=== PATIENT | female | born 1985 | race Caucasian/White ===

== ENCOUNTER 2020-08-26 16:04 | Outpatient (CLI) | payer BC, SELFPAY ==
[2020-08-26 16:42] VITALS: BP 127/87; PULSE 68
[2020-08-26 16:45] VITALS: BP 126/87; PULSE 75
[2020-08-26 16:50] VITALS: BP 126/87; PULSE 80
[2020-08-26 16:56] LABS: Basophils Percent Auto 0.3 % (0.2-1.2); Eosinophils Percent Auto 0.5 % (0-4.4); Hematocrit 39.5 % (37.0-47.0); Hemoglobin 13.1 g/dL (12.0-15.0); Immature Granulocyte Absolute 0.07 K/mm3 (0.00-0.031); Immature Granulocyte Percent A 0.9 % (0-0.5); Lymphocytes Absolute Auto 2.29 K/mm3 (0.9-3.2); Lymphocytes Percent Auto 29.1 % (18.3-44.2); Mean Corpuscular HGB Conc 33.2 g/dl (32-36); Mean Corpuscular Volume 96.3 fl (80-100); Mean Platelet Volume 11.9 fl (7.4-10.4); Monocytes Absolute Auto 0.8 K/mm3 (0.1-0.6); Monocytes Percent Auto 9.6 % (2.6-8.5); Neutrophils Absolute Auto 4.7 K/mm3 (1.3-6.7); Neutrophils Percent Auto 59.6 % (45.5-73.1); Platelet Count Result 141 k/mm3 (150-375); Red Cell Distribution Width 13.5 % (11.5-14.5); White Blood Count 7.9 K/mm3 (4.5-10.0)
[2020-08-26 17:06] LABS: Alanine Aminotransferase 14 U/L (4-35); Albumin Level 3.5 g/dL (3.5-5.1); Alkaline Phosphatase 140 U/L (38-126); Anion Gap 6 mmol/L (8-16); Aspartate Amino Transferase 25 U/L (14-36); Bilirubin,Total 0.3 mg/dL (0.2-1.3); Blood Urea Nitrogen 12 mg/dL (7-17); Calcium 9.5 mg/dL (8.4-10.2); Carbon Dioxide 18 mmol/L (22-30); Chloride 110 mmol/L (98-107); Estimated Glomerular Filt Rate > 60; Glucose 73 mg/dL (65-110); Sodium 134 mmol/L (137-145); Uric Acid 4.3 mg/dL (2.5-7.5)
[2020-08-26 17:36] VITALS: BP 127/87
--- NOTE | 2020-08-26 17:39 | PC.NURSE ---
talked with patient as nurse was sending labs down, he discharged pt prior to any questions being asked by nurse. talked with pt on when to see him in the office and what to come back in for
== END 2020-08-26 17:15 | disposition home or self-care (01) ==
LOC: ANHOBOP 16:09 → ANHLDR 16:10
PROVIDERS: PCP Family Medicine; Visit Provider Student in an Organized Health Care Education/Training Program
DX: O13.9 Gestational [pregnancy-induced] hypertension without significant proteinuria, unspecified trimester (principal); Z3A.00 Weeks of gestation of pregnancy not specified
CPT/HCPCS: 36415; 59025; 80053; 84550; 85025; 99199

== ENCOUNTER 2020-09-09 17:07 | Outpatient (RCR) | payer BC, SELFPAY ==
[2020-09-09 18:25] VITALS: BP 140/89; PULSE 88
== END 2020-09-16 08:17 | disposition home or self-care (01) ==
LOC: ANHOBOP 17:07
PROVIDERS: PCP Family Medicine; Visit Provider Obstetrics & Gynecology
DX: O48.0 Post-term pregnancy (principal); Z3A.40 40 weeks gestation of pregnancy
CPT/HCPCS: 59025

== ENCOUNTER 2020-09-10 23:51 | Inpatient (IN) | payer BC, SELFPAY ==
[2020-08-10 14:33] VITALS: BMI 31.3
--- NOTE | 2020-09-10 23:51 | LDADM ---
This patient, Hailey Vu, was admitted to Labor/Delivery/Recovery 107 on 09/10/20 at 23:51. Plans for labor, pain management and were discussed with patient. Patient/family oriented to hospital policies and general routines including ID bracelet, bed and alarms, visiting hours, pain management, procedures, bathroom and other care routines, personal items, smoking policy, room service/diet and guest tray routines, security routines, and visiting hours. Patient/Family are encouraged to report perceived risks to care and to ask questions if they do not understand what they are told or what they should do. See OBIX for further documentation.
[2020-09-11] VITALS (120 sets, daily range): BP systolic 80–156; BP diastolic 41–103; PULSE 52–109; RESP 16–20; TEMP 36.3–36.9; O2SAT 97–100; BMI 31.8
[2020-09-11 01:10] LABS: Basophils Percent Auto 0.4 % (0.2-1.2); Eosinophils Percent Auto 0.4 % (0-4.4); Hematocrit 39.4 % (37.0-47.0); Hemoglobin 13.4 g/dL (12.0-15.0); Immature Granulocyte Absolute 0.08 K/mm3 (0.00-0.031); Lymphocytes Absolute Auto 2.96 K/mm3 (0.9-3.2); Lymphocytes Percent Auto 37.4 % (18.3-44.2); Mean Corpuscular Hemoglobin 32.8 pg (26-34); Mean Corpuscular Volume 96.6 fl (80-100); Mean Platelet Volume 12.9 fl (7.4-10.4); Monocytes Absolute Auto 0.7 K/mm3 (0.1-0.6); Monocytes Percent Auto 8.2 % (2.6-8.5); Neutrophils Absolute Auto 4.2 K/mm3 (1.3-6.7); Neutrophils Percent Auto 52.6 % (45.5-73.1); Platelet Count Result 109 k/mm3 (150-375); Red Blood Count 4.08 M/mm3 (4.2-5.4); Red Cell Distribution Width 13.5 % (11.5-14.5); White Blood Count 7.9 K/mm3 (4.5-10.0)
[2020-09-11 01:22] LABS: Alanine Aminotransferase 13 U/L (4-35); Albumin Level 3.5 g/dL (3.5-5.1); Alkaline Phosphatase 155 U/L (38-126); Anion Gap 7 mmol/L (8-16); Aspartate Amino Transferase 24 U/L (14-36); Bilirubin,Total 0.2 mg/dL (0.2-1.3); Blood Urea Nitrogen 14 mg/dL (7-17); Calcium 9.9 mg/dL (8.4-10.2); Carbon Dioxide 18 mmol/L (22-30); Chloride 105 mmol/L (98-107); Estimated CRCL calculation 109 ml/min; Estimated Glomerular Filt Rate > 60; Glucose 74 mg/dL (65-110); Potassium 3.7 mmol/L (3.4-5.0); Sodium 130 mmol/L (137-145); Uric Acid 5.3 mg/dL (2.5-7.5)
[2020-09-11] MEDS: OXYTOCIN 30 UNITS/NS 500 ML 30 UNITS/500 ML BAG 6 UNITS IV CONT (03:07)
[2020-09-11] MEDS: LACTATED RINGERS 1,000 ML 125 ML IV CONT ×3 (03:07→15:41)
[2020-09-11 03:26] LABS: Add Urine Microscopic? YES; Appearance Urine Cloudy (Clear); Bacteria Urine Trace /hpf; Bilirubin Urine Negative (Negative); Blood Urine 2+ (Negative); Color Urine Straw (Yellow); Glucose Urine UA Negative (Negative); Ketones Urine Trace mg/dL (Negative); Leukocyte Esterase Ur Trace LEU/UL (NEGATIVE); Nitrate Urine Negative (Negative); Protein Urine Negative (Negative); RBC Urine 0-2 /hpf (0-2); Specific Grav Ur 1.005 (1.001-1.035); Squamous Epithelial Cell Urine Few /hpf (Few); Urobilinogen Urine Negative mg/dL (<2.0); WBC Urine 0-3 /hpf (0-3)
[2020-09-11 03:27] LABS: Total Protein Urine Random 18 mg/dL; Ur Ttl Prot Creatinine Ratio 0.78 mg/mg (0-0.20)
--- NOTE | 2020-09-11 06:47 | PM.IMHP ---
H&P: HPI History of Present Illness Date/Time: 09/11/20 06:47 35-year-old 1 para 0 whose last menstrual period was 11/28/2019, EDC is 09/03/2020, confirmed by 1st trimester ultrasound presents at term in active labor. Her has been uncomplicated. She is 41 weeks gestation and was scheduled for induction in 2 days she spontaneously ruptured prior to admission Chief Complaint: spontaneous rupture membranes at 41 weeks gestation Review of Systems Review of Systems: All systems reviewed & are unremarkable except as noted in HPI and below PMFSH Family History Family History Father Diabetes mellitus Hypertension Mother Hypertension Diabetes mellitus Social History Social History Smoking status: Never smoker Substance use: never Gender identity (if verbalized by the patient): Female Sexual Orientation (if Verbalized by the Patient): Straight or Heterosexual Spiritual care concerns: No Meds Home Medications and Allergies Home Medications Medication Instructions Recorded Confirmed Type lysine 1,000 mg PO QAM 08/10/20 09/11/20 History omega-3 fatty acids [Fish Oil] 1,000 mg PO DAILY 08/10/20 08/10/20 History vit no.[id number] 1 tablet PO QAM 08/10/20 09/11/20 History [Alive ] Allergies Allergy/AdvReac Type Severity Reaction Status Date / Time amoxicillin Allergy Hives Verified 08/10/20 14:14 Vital Signs Vital Signs - 24 hr 09/11/20 00:21 09/11/20 00:31 09/11/20 00:45 Temperature 98.4 F Pulse Rate 57 L 72 Respiratory Rate 16 Blood Pressure 134/87 147/96 H 09/11/20 01:01 09/11/20 01:16 09/11/20 01:21 Temperature Pulse Rate 65 69 Respiratory Rate 16 Blood Pressure 136/88 130/83 09/11/20 01:34 09/11/20 02:01 09/11/20 02:04 Temperature 98.1 F Pulse Rate 100 59 L Respiratory Rate 16 Blood Pressure 97/83 L 135/77 09/11/20 03:01 09/11/20 03:31 09/11/20 04:01 Temperature Pulse Rate 78 62 57 L Respiratory Rate Blood Pressure 130/94 H 139/82 126/80 09/11/20 04:04 09/11/20 04:32 09/11/20 05:01 Temperature 97.9 F Pulse Rate 61 64 Respiratory Rate 18 Blood Pressure 133/91 H 132/92 H 09/11/20 05:30 09/11/20 06:00 09/11/20 06:03 Temperature 98.2 F Pulse Rate 80 72 Respiratory Rate 18 Blood Pressure 126/89 131/78 09/11/20 06:25 09/11/20 06:30 Temperature 97.8 F Pulse Rate 72 Respiratory Rate 18 Blood Pressure 144/81 H Exam Const: General: no acute distress Eyes: General: appearance normal, both eyes and all related structures Neck: Neck: supple and no JVD Thyroid: thyroid normal Resp: Effort & Inspection: normal respiratory effort Auscultation: clear to auscultation bilaterally Cardio: Rate: regular rate Rhythm: regular rhythm GI: Inspection: non-distended GI Palp: Yes Soft to palpation, No Tenderness to palpation present (GI) and No Guarding due to palpation present (GI) Auscultation: normal bowel sounds : Speculum Exam - Vagina: normal appearance of the vagina Speculum Exam - Cervix: normal appearance of the cervix ( dimple/50%. Clear fluid seen. FHTs reassuring. Pit has been begun) Skin: General skin exam: no rashes or lesions noted Extrem: General: normal to inspection and no edema Psych: Mental Status: mental status grossly normal Affect: normal affect H&P: Results Labs Labs: Short CBC 09/11/20 Range/Units 00:58 WBC 7.9 (4.5-10.0) K/mm3 Hgb 13.4 (12.0-15.0) g/dL Hct 39.4 (37.0-47.0) % Plt Count 109 L (150-375) k/mm3 BMP 09/11/20 00:58 Sodium 130 L Potassium 3.7 Chloride 105 Carbon Dioxide 18 L BUN 14 Creatinine 0.70 Glucose 74 Calcium 9.9 Liver Function 09/11/20 Range/Units 00:58 Total Bilirubin 0.2 (0.2-1.3) mg/dL AST 24 (14-36) U/L ALT 13 (4-35) U/L Alkaline Phosphata
[2020-09-11 10:28] LABS: Rapid Plasma Reagin Non-Reactive (NonReactive)
--- NOTE | 2020-09-11 10:34 | WPDANESEPP ---
Anes - Eval Pre Procedure Procedure: Labor epidural Date/Time: 09/11/20 10:34 Surgeon: Edenilson Preop Diagnosis: Abd pain with contractions Pre Op Diagnosis: SROM Patient Data Age: 35 Gender: F Height: 1.68 m Weight: 89.5 kg Last Vital Signs Temp 98 F 09/11/20 09:05 Pulse 78 09/11/20 10:00 Resp 18 09/11/20 09:05 BP 131/80 09/11/20 10:00 Allergies Allergy/AdvReac Type Severity Reaction Status Date / Time amoxicillin Allergy Hives Verified 08/10/20 14:14 Home Medications Medication Instructions Recorded Confirmed Type lysine 1,000 mg PO QAM 08/10/20 09/11/20 History omega-3 fatty acids [Fish Oil] 1,000 mg PO DAILY 08/10/20 08/10/20 History vit no.[id number] 1 tablet PO QAM 08/10/20 09/11/20 History [Alive ] Laboratory Tests 09/11/20 09/11/20 09/11/20 00:58 00:58 00:58 WBC 7.9 K/mm3 K/mm3 (4.5-10.0) RBC 4.08 M/mm3 L M/mm3 (4.2-5.4) Hgb 13.4 g/dL g/dL (12.0-15.0) Hct 39.4 % % (37.0-47.0) MCV 96.6 fl fl (80-100) MCH 32.8 pg pg (26-34) MCHC 34.0 g/dl g/dl (32-36) RDW 13.5 % % (11.5-14.5) Plt Count 109 k/mm3 L k/mm3 (150-375) MPV 12.9 fl H fl (7.4-10.4) Immature Gran % (Auto) 1.0 % H % (0-0.5) Neut % (Auto) 52.6 % % (45.5-73.1) Lymph % (Auto) 37.4 % % (18.3-44.2) [place] % (Auto) 8.2 % % (2.6-8.5) Eos % (Auto) 0.4 % % (0-4.4) Baso % (Auto) 0.4 % % (0.2-1.2) Lymph # (Auto) 2.96 K/mm3 K/mm3 (0.9-3.2) [place] # (Auto) 0.7 K/mm3 H K/mm3 (0.1-0.6) Eos # (Auto) 0.0 K/mm3 K/mm3 (0-0.3) Baso # (Auto) 0.0 K/mm3 K/mm3 (0.0-0.1) Abs Immat Gran (auto) 0.08 K/mm3 H K/mm3 (0.00-0.031) Absolute Neuts (auto) 4.2 K/mm3 K/mm3 (1.3-6.7) Absolute Nucleated RBC 0.0 K/mm3 K/mm3 (0.0-0.012) Nucleated RBC % 0.0 % % (0.0-0.2) Sodium Potassium Chloride Carbon Dioxide Anion Gap BUN Creatinine Estim Creat Clear Calc Estimated GFR Glucose Uric Acid 5.3 mg/dL mg/dL (2.5-7.5) Calcium Total Bilirubin AST ALT Alkaline Phosphatase Total Protein Albumin Urine Color Urine Appearance Urine pH Ur Specific [place] Urine Protein Urine Glucose (UA) Urine Ketones Ur Blood (Man) Urine Nitrate Urine Bilirubin Urine Urobilinogen Ur Leukocyte Esterase Urine RBC Urine WBC Ur Squamous Epith Cells Urine Bacteria U Random Total Protein Urine Creatinine Protein/Creat Ratio 2 RPR Non-reactive (NonReactive) Blood Type Antibody Screen 09/11/20 09/11/20 09/11/20 00:58 00:58 03:10 WBC RBC Hgb Hct MCV MCH MCHC RDW Plt Count MPV Immature Gran % (Auto) Neut % (Auto) Lymph % (Auto) [place] % (Auto) Eos % (Auto) Baso % (Auto) Lymph # (Auto) [place] # (Auto) Eos # (Auto) Baso # (Auto) Abs Immat Gran (auto) Absolute Neuts (auto) Absolute Nucleated RBC Nucleated RBC % Sodium 130 mmol/L L mmol/L (137-145) Potassium 3.7 mmol/L mmol/L (3.4-5.0) Chloride 105 mmol/L mmol/L (98-107) Carbon Dioxide 18 mmol/L L mmol/L (22-30) Anion Ga
--- NOTE | 2020-09-11 12:12 | PM.OBPNLAB ---
Pain Control Date/time seen: 09/11/20 12:12 Pain control: tolerating well Pelvic Exam Amniotic membrane status: Leaking Contractions Monitor mode: Palpation Contraction pattern: Regular Contraction phase: Resting Contraction intensity: Moderate Status status: Category l
[2020-09-11] MEDS: fentaNYL CITRATE INJ (*CRX) 100 MCG/2 ML VIAL 50 MCG IV PUSH (12:19)
--- NOTE | 2020-09-11 13:29 | PM.OBPNLAB ---
Pain Control Date/time seen: 09/11/20 13:29 Pain control: tolerating well Pelvic Exam Dilation (cm): 2 Amniotic membrane status: Leaking Contractions Monitor mode: Palpation Contraction pattern: Regular Contraction phase: Resting Contraction intensity: Moderate Status status: Category ll
--- NOTE | 2020-09-11 16:48 | PM.OBPNLAB ---
Pain Control Date/time seen: 09/11/20 16:48 Pain OK with epidural. AVSS NST reactive TOCO: contractions every 2-4 min ABD soft, nontender, gravid, vertex EXT nontender Cervix 4/50/-2. AROM of forebag with clear fluid. Vertex. IUPC placed. Pelvic Exam Dilation (cm): 4 Effacement (%): 60 station: -2 Amniotic membrane status: Leaking Contractions Monitor mode: Palpation Contraction frequency: 3 Contraction pattern: Regular Contraction phase: Resting Contraction intensity: Moderate Status status: Category l Assessment and Plan Comments: A: IUP at term with SROM. P: Continue oxytocin augmentation. Anticipate .
[2020-09-11] MEDS: ceFAZolin 2 GM/D5W 50 ML 2 GM/50 ML BAG IVPB (17:18)
[2020-09-12] VITALS (161 sets, daily range): BP systolic 66–158; BP diastolic 31–117; PULSE 56–266; RESP 13–20; TEMP 36.4–37.5; O2SAT 87–100
[2020-09-12] MEDS: LACTATED RINGERS 1,000 ML 125 ML IV CONT (00:35)
--- NOTE | 2020-09-12 09:57 | WPDANESEFPP ---
Anes - Eval Final PreProcedure Day of Procedure 09/12/20 09:57 Patient weight: obese Heart: regular rate and rhythm Lungs: clear to auscultation and normal air movement Airway: Mallampati scale class II Neurological: alert and oriented Last oral intake: >/= 8 hours ASA classification: II Emergent: no Anesthetic plan: proceed Anesthesia type and monitoring: regional epidural and standard monitoring Other findings: C/S Informed Consent: The patient's anesthetic plan and its attendant risks and benefits were discussed with the patient/family/POA. Questions were solicited and answers provided to the satisfaction of the patient/family/POA.
--- NOTE | 2020-09-12 09:59 | PM.OBPNLAB ---
Pain Control Date/time seen: 09/12/20 09:59 Still comfortable with epidural. Pelvic Exam Dilation (cm): 5 Effacement (%): 80 station: -1 Amniotic membrane status: Leaking Contractions Monitor mode: Palpation Contraction frequency: 3 Contraction pattern: Regular Contraction phase: Resting Contraction intensity: Moderate Status status: Category l Assessment and Plan Comments: A: Arrest of dilation in labor, despite adequate contractions. P: Offered primary . She understands risks of surgery to include risks of anesthesia, risks of pain, infection, bleeding, blood products, thromboembolic phenomena and damage to adjacent structures such as bowel, bladder, ureters, blood vessels and nerves. She understands all these risks and elects to proceed with surgery.
--- NOTE | 2020-09-12 11:22 | PM.OBPRVD ---
OB - Delivery Note Procedure Delivery date: 09/12/20 Procedure: Procedures Operation Date: 09/12/20 10:30 <No data on this case meets the specified criteria> Primary low transverse delivery Induction method: none Delivery augmentation: pitocin Delivery monitor: external FHT, external uterine and internal uterine Route of delivery: Specimen: Yes (cord blood) Quantitative Blood Loss (ml): 590 Anesthesia type: Epidural Disposition: PACU Complications: None Narrative: The patient was taken to the operating room where she was prepared and draped in the usual sterile fashion in dorsal supine position with a leftward tilt. She received cefazolin preoperatively. Spinal anesthesia was found to be adequate. A Pfannenstiel skin incision was made and carried through to the underlying layer of the fascia. The fascia was incised in the midline and the incision was extended laterally. The fascia was dissected free of the underlying rectus muscles. The rectus muscles were in the midline. The peritoneum was identified, tented up and entered sharply. The peritoneal incision was extended superiorly and inferiorly with good visualization of the bladder. The bladder blade was placed. The vesicouterine peritoneum was identified, tented up and entered sharply. The incision was extended laterally and the bladder flap was developed. The bladder blade was replaced. The uterus was then incised sharply in a transverse fashion along the lower uterine segment. The incision was extended laterally. The infant's head was delivered atraumatically to the sterile field, followed by the body. The nose and mouth were bulb suctioned. After a delay, the cord was clamped and cut. The was handed off the field. Cord blood was collected. The placenta was removed manually and was passed off the field. The uterus was exteriorized and cleared of all clots and debris. The uterine incision was reapproximated using 0 Monocryl in a running, locked fashion. A second, imbricating layer of the same suture was placed. Excellent hemostasis resulted as did excellent reapproximation of the normal anatomy. The uterus was returned the abdomen. The pelvis was irrigated copiously with warmed normal saline. Rigorous hemostasis was assured. The fascial layer was reapproximated using 0 Vicryl in a running fashion. The skin was closed with a running, subcuticular stitch of 4 0 Vicryl. Dermaflex was applied externally. Sponge, lap, needle and instrument counts were correct. The patient was taken to the recovery room in stable condition. The infant went to the nursery in stable condition. I was present and scrubbed the entire procedure. [place] Baby Date of : 09/12/20 Time of : 10:53 Weeks of gestation at delivery: 41 Infant gender: Male Weight (pounds): 10 Weight (ounces): 4 presentation: vertex Placenta delivery description: Manual Removal and Normal Configuration cord vessel description: 3 Vessels score one minute: 9 score five minutes: 9
--- NOTE | 2020-09-12 11:25 | PM.OBDSVD ---
DS: Admitting Diagnosis Admitting Diagnosis IUP at 41 2/7 weeks SROM DS: Discharge Diagnosis Discharge Diagnosis (1) delivery delivered: Code(s): O82 - Encounter for delivery without indication Status: Acute OB - DS: Summary OB Procedures : None OB Procedures Intrapartum: low cervical, transverse OB Procedures: : None Peripartum Data Procedures: Procedures Operation Date: 09/12/20 10:30 <No data on this case meets the specified criteria> Primary LTCS Discharge Plan Discharge Attending physician on discharge: Karri Arthur Consulting providers: Andrés Soto Discharging Clinician: Karri Arthur Patient Disposition: Home, Self-Care Activity: may shower, may drive after 2 weeks and pelvic rest Diet: regular Wound Care Instructions: incision open to air Discharge Instructions: Call or return if temperature above 100.4? F, increased abdominal pain, increased vaginal bleeding or any new problems. Education: Mom and Baby Guide Given to: Mother Follow-Up: Call your delivering provider's office for an appointment to be seen in: 4 Weeks Mom and baby should come to the [facility] for the follow-up appointment. Appointment Date/Time: September 17, 2020 at 8:00 am What to expect at your follow-up visit: Physical Assessment Call [phone] if you are unable to keep your appointment time. BREAST CARE: * Wear a snug supportive bra. * For engorgement discomfort: Breast Feeding: * Apply warm moist washcloths * Express milk as needed to relieve engorgement * Wear loose clothing * For sore nipples: * Identify correct latch-on * Apply warm moist washcloths before and after nursing * Air dry nipples after nursing * May apply Lansinoh cream to nipples ABDOMINAL INCISION: (if applicable) * Allow incision to air dry * Do NOT use lotions for powders on your incision * When showering, allow soap and water to run over the incision, but do not wash incision EPISIOTOMY/PERINEAL CARE: * Until bleeding stops, use your rayna bottle after urinating * Change your pad frequently throughout the day * No tub baths until seen by your physician - You may shower ACTIVITY: * Rest as much as possible. * Do not exercise or lift anything heavier than your baby (such as laundry or other children.) * Avoid stairs or driving as much as possible. * Do not put anything into the vagina. No douching, tampons, or sexual activity until seen by physician. NOTIFY PHYSICIAN IF YOU HAVE ANY QUESTIONS OR IF ANY OF THE FOLLOWING SYMPTOMS OCCUR: * If your incision becomes red, swollen, or more painful than what you have experienced in the hospital. * If your vaginal bleeding becomes foul smelling. * If your vaginal bleeding becomes more heavy than a period or if your bleeding changes from pink to bright red. However, you may pass an occasional walnut-sized clot once or twice for the first week . * If you experience a sharp, shooting pain in you calves. * If you discover a hard, reddened area on your breast or if you experience flu-like symptoms. DIET: * Eat regular, well-balanced meals. * Drink plenty of fluids daily. If , drink to thirst. Stand Alone Forms: General Discharge Information Follow-up/Referrals: Karri Arthur MD [Physician] - 4 Weeks Discharge Medications: New ibuprofen 600 mg tablet 600 mg PO Q6H PRN (Reason: cramps) Qty: 30 RF: 0 hydrocodone-acetaminophen 5-325 mg tablet 1 - 2 tablet PO Q6H Qty: 30 RF: 0 hydrocodone-acetaminophen 5-325 mg tablet 1 tablet PO Q4H PRN (Reason: pain) Qty: 30 RF: 0 Continued Alive 400 mcg- 25 mg Tablet,Chewable 1 tablet PO QAM RF: 0 lysine 500 mg Capsule 1,000 mg PO QAM RF: 0 omega-3 fatty acids Capsule 1,000 mg PO D
--- NOTE | 2020-09-12 14:28 | OBPPTRN ---
Patient transferred to post room # 291 via stretcher. Support person present. Oriented to unit, room, information board, rooming in, admission packet and security measures. Patient verbalizes understanding.
[2020-09-12] MEDS: DEXTROSE 5%/0.45% SOD CHL 1,000 ML 125 ML IV CONT (17:32)
[2020-09-12] MEDS: IBUPROFEN 600 MG TABLET PO (20:26)
[2020-09-13] VITALS: BP 111/77; PULSE 69; RESP 18; TEMP 36.4; O2SAT 100
[2020-09-13] MEDS: SIMETHICONE 80 MG TAB.CHEW PO ×2 (02:10→08:11)
[2020-09-13] MEDS: IBUPROFEN 600 MG TABLET PO ×4 (02:10→21:38)
[2020-09-13 05:20] VITALS: BP 105/71; PULSE 66; RESP 16; TEMP 36.3; O2SAT 100
[2020-09-13 06:03] LABS: Basophils Percent Auto 0.3 % (0.2-1.2); Eosinophils Percent Auto 0.3 % (0-4.4); Hemoglobin 10.6 g/dL (12.0-15.0); Immature Granulocyte Absolute 0.11 K/mm3 (0.00-0.031); Immature Granulocyte Percent A 0.8 % (0-0.5); Mean Corpuscular HGB Conc 33.1 g/dl (32-36); Mean Corpuscular Hemoglobin 32.4 pg (26-34); Mean Corpuscular Volume 97.9 fl (80-100); Mean Platelet Volume 12.7 fl (7.4-10.4); Monocytes Absolute Auto 0.9 K/mm3 (0.1-0.6); Neutrophils Absolute Auto 9.7 K/mm3 (1.3-6.7); Neutrophils Percent Auto 71.6 % (45.5-73.1); Platelet Count Result 90 k/mm3 (150-375); Red Blood Count 3.27 M/mm3 (4.2-5.4); Red Cell Distribution Width 13.8 % (11.5-14.5); White Blood Count 13.5 K/mm3 (4.5-10.0)
[2020-09-13 08:05] VITALS: BP 108/76; PULSE 64; RESP 16; TEMP 36.3; O2SAT 99
[2020-09-13] MEDS: MULTIVIT/MIN/PREN/FOL AC/IRON TABLET 1 TAB PO (08:10)
[2020-09-13] MEDS: DOCUSATE SODIUM 100 MG CAPSULE PO ×2 (08:11→15:28)
--- NOTE | 2020-09-13 09:01 | WPDANLDNPN2 ---
Anes-Prog Note L&D-Neuraxial Date/Time: 09/13/20 09:01 Neuraxial medications: epidural PF morphine Opiod-related complaints: none Patient feedback: Patient satisfied with post-operative pain management.
--- NOTE | 2020-09-13 09:01 | WPDANLDPN2 ---
Anes-Prog Note L&D Date/Time: 09/13/20 09:01 Comfortable throughout: section Neuraxial method: epidural Neuro status: Neuro function grossly intact. Cardiovascular status: normal Respiratory status: normal Airway patency: baseline Mental status: baseline Post-Op hydration status: normal Vital Signs: Last Vital Signs Temp 36.3 C L 09/13/20 08:05 Pulse 64 09/13/20 08:05 Resp 16 09/13/20 08:05 BP 108/76 09/13/20 08:05 Pulse Ox 99 09/13/20 08:05 Pain score (VAS): 0/10 I/O: Intake & Output 09/12/20 09/13/20 09/13/20 23:59 07:59 15:59 Intake Total 1250 850 Output Total 725 1300 Balance 525 -450 Post-procedural complaints: pruritis Patient feedback: Patient satisfied with anesthetic care.
--- NOTE | 2020-09-13 14:29 | PM.OBPNVD ---
OB - PN: Subj Subjective Date/time seen: 09/13/20 14:29 Narrative: Pain OK. Tolerating diet. Would like circumcision for son. OB - PN: Obj Data Labs CBC & Chem 7: 09/13/20 05:35 09/11/20 00:58 Labs: Laboratory Results - last 24 hr 09/13/20 05:35 WBC 13.5 H RBC 3.27 L Hgb 10.6 L Hct 32.0 L MCV 97.9 MCH 32.4 MCHC 33.1 RDW 13.8 Plt Count 90 L MPV 12.7 H Immature Gran % (Auto) 0.8 H Neut % (Auto) 71.6 Lymph % (Auto) 20.0 [place] % (Auto) 7.0 Eos % (Auto) 0.3 Baso % (Auto) 0.3 Lymph # (Auto) 2.70 [place] # (Auto) 0.9 H Eos # (Auto) 0.0 Baso # (Auto) 0.0 Abs Immat Gran (auto) 0.11 H Absolute Neuts (auto) 9.7 H Absolute Nucleated RBC 0.0 Nucleated RBC % 0.0 OB - PN A/P Plan Comments: A: POD#1, doing well. P: Routine care. Reviewed circ. Exam Narrative: AVSS I/O OK ABD soft, nontender, fundus firm. Incision c/d/i. EXT nontender
[2020-09-13 19:15] VITALS: BP 124/85; PULSE 67; RESP 16; TEMP 36.9; O2SAT 100
[2020-09-14] MEDS: IBUPROFEN 600 MG TABLET PO ×3 (05:59→21:29)
--- NOTE | 2020-09-14 07:15 | PC.NURSE ---
PT introductions made and plan of care discussed per post op c section, pain management, breast feeding, daily care activities. PT received such instructions this shift by one to one discussion, mom baby care guide and demonstration. PT and significant other both recipients of such instructions and no barriers to learning identified. Pt verbalized understanding of such care.
--- NOTE | 2020-09-14 07:18 | PM.OBPNVD ---
OB - PN: Subj Subjective Date/time seen: 09/14/20 07:18 Patient comments: no complaints and pain well controlled baby status: doing well and nursing well OB - PN: Obj Data Labs CBC & Chem 7: 09/13/20 05:35 09/11/20 00:58 OB - PN A/P Plan day: 2 Plan: routine care Time Spent With Patient Time: Total time spent is greater than 50% in coordination of care (as documented) at patient's floor/unit and/or counseling patient: Time with patient: less than 15 minutes Review of Systems Review of Systems: All systems reviewed & are unremarkable except as noted in HPI and below Exam Const: General: no acute distress Eyes: General: appearance normal, both eyes and all related structures Neck: Neck: supple and no JVD Thyroid: thyroid normal Resp: Effort & Inspection: normal respiratory effort Auscultation: clear to auscultation bilaterally Cardio: Rate: regular rate Rhythm: regular rhythm GI: Inspection: non-distended GI Palp: Yes Soft to palpation, No Tenderness to palpation present (GI) and No Guarding due to palpation present (GI) Auscultation: normal bowel sounds : General: Yes bladder normal to palpation External Female Exam: normal external appearance Speculum Exam - Vagina: normal vaginal discharge and No vaginal bleeding Speculum Exam - Cervix: nontender Bimanual exam- vagina & uterus: bladder normal to palpation and No Cervical tenderness present OB/external & speculum: No vaginal bleeding Skin: General skin exam: no rashes or lesions noted Extrem: General: normal to inspection and no edema Psych: Mental Status: mental status grossly normal Affect: normal affect
[2020-09-14 08:30] VITALS: BP 129/76; PULSE 63; RESP 18; TEMP 36.4; O2SAT 100
[2020-09-14] MEDS: ACETAMINOPHEN 325 MG TABLET 650 MG PO ×3 (10:18→21:28)
[2020-09-14] MEDS: SIMETHICONE 80 MG TAB.CHEW PO ×3 (10:19→17:44)
[2020-09-14 10:20] VITALS: PULSE 63; RESP 18; O2SAT 100
[2020-09-14] MEDS: LANOLIN (LANSINOH) 7.5 GM CREAM 1 APPLIC TOPICAL (10:20)
[2020-09-14] MEDS: MULTIVIT/MIN/PREN/FOL AC/IRON TABLET 1 TAB PO (10:20)
[2020-09-14] MEDS: DOCUSATE SODIUM 100 MG CAPSULE PO ×2 (10:20→17:44)
--- NOTE | 2020-09-14 14:05 | PC.NURSE ---
Mother called out for assist with feeding, reporting tenderness with feeding. is able to freely thrust tongue past gum ridge and flange both lips. Skin is intact on both nipples, redness noted to both nipples. Nipple care reviewed of lanolin after feedings, warm compresses as needed. Reviewed infant feeding cues, frequencies, duration of feedings, feeding elimination flow sheet, and signs of adequate intake. Demonstrated stimulation techniques to wake for feeding. Assisted with to breast. Reviewed positioning/alignment in cross cradle, holding breast in ?U? hold and guided asymmetrical latch on. Discussed rational for each. Infant able to latch correctly. latched eagerly, with short chewy suckling. Adjusted latch more deeply. Bursts of steady draws with rhythmical suckling with intermittent short chew suckling and occasional swallowing noted. Suggested mother stimulate while feeding to increase stimulation, increase intake and to assist with maintaining deep latch. Reviewed signs of a correct latch, effective nursing and suck swallow ratio. would slip to shallow latch, mother reports tenderness. Demonstrated how to adjust latch more deeply while feeding. Mother reports she can feel change in latch and has no tenderness. Mother states she has supplemented, due to fussiness and wanting to suckle. Suggested mother put to both breast each feeding before supplementing. Discussed 20 mls by paced feeding. Instructed mother to call out for RN assistance if she is unable to latch infant for feeding or she has discomfort with nursing.
[2020-09-14 18:45] VITALS: BP 132/86; PULSE 76; RESP 18; TEMP 36.4; O2SAT 100
[2020-09-15] MEDS: IBUPROFEN 600 MG TABLET PO ×2 (03:28→10:17)
[2020-09-15] MEDS: ACETAMINOPHEN 325 MG TABLET 650 MG PO ×2 (03:29→10:21)
--- NOTE | 2020-09-15 07:13 | P.DS_ITS ---
DS: Admitting Diagnosis Admitting Diagnosis term iup in labor DS: Summary Hospital Course Hospital Course: The patient was admitted in active labor. She required a low- transverse section secondary to cephalopelvic disproportion as the baby weighed over 10 lb. Her hospital course was unremarkable. She remained afebrile. She was breast feeding, voiding without difficulty, ambulating, and general without complaints Time Spent with Patient Time attestation: Total time spent providing and/or coordinating discharge services: Exam Const: General: no acute distress Eyes: General: appearance normal, both eyes and all related structures Neck: Neck: supple and no JVD Thyroid: thyroid normal Resp: Effort & Inspection: normal respiratory effort Auscultation: clear to auscultation bilaterally Cardio: Rate: regular rate Rhythm: regular rhythm GI: Inspection: non-distended GI Palp: Yes Soft to palpation, No Tenderness to palpation present (GI) and No Guarding due to palpation present (GI) Auscultation: normal bowel sounds : General: Yes bladder normal to palpation External Female Exam: normal external appearance Speculum Exam - Vagina: normal vaginal discharge and No vaginal bleeding Speculum Exam - Cervix: nontender Bimanual exam- vagina & uterus: bladder normal to palpation and No Cervical tenderness present OB/e xternal & speculum: No vaginal bleeding Skin: General skin exam: no rashes or lesions noted Extrem: General: normal to inspection and no edema Psych: Mental Status: mental status grossly normal Affect: normal affect DS: Data Data Completed and Pending Pending studies at discharge: Pending at discharge 09/12/20 10:54 Surgical [PTH] Routine Discharge Plan Discharge Attending physician on discharge: Karri Arthur Discharging Clinician: Karri Arthur Patient Disposition: Home, Self-Care Activity: may shower, may drive after 2 weeks and pelvic rest Diet: regular Wound Care Instructions: incision open to air Discharge Instructions: Call or return if temperature above 100.4? F, increased abdominal pain, increased vaginal bleeding or any new problems. Stand Alone Forms: General Discharge Information Follow-up/Referrals: Karri Arthur MD [Physician] - 4 Weeks Discharge Medications: New ibuprofen 600 mg tablet 600 mg PO Q6H PRN (Reason: cramps) Qty: 30 RF: 0 hydrocodone-acetaminophen 5-325 mg tablet 1 - 2 tablet PO Q6H Qty: 30 RF: 0 Continued Alive 400 mcg- 25 mg Tablet,Chewable 1 tablet PO QAM RF: 0 lysine 500 mg Capsule 1,000 mg PO QAM RF: 0 Fish Oil Capsule 1,000 mg PO DAILY RF: 0 Date of admission: 09/10/20 23:51 Primary Care Provider: Saad,Karri Vegas Admitting Provider: Karri Arthur Attending physician on admission: Karri Arthur Condition: Stable
--- NOTE | 2020-09-15 07:15 | PM.OBPNVD ---
OB - PN: Subj Subjective Date/time seen: 09/15/20 07:15 Patient comments: no complaints and pain well controlled baby status: doing well and nursing well OB - PN: Obj Data Labs CBC & Chem 7: 09/13/20 05:35 09/11/20 00:58 OB - PN A/P Plan day: 3 Plan: routine care, discharge home and follow up 6 weeks (4 weeks) Time Spent With Patient Time: Total time spent is greater than 50% in coordination of care (as documented) at patient's floor/unit and/or counseling patient: Time with patient: less than 15 minutes Review of Systems Review of Systems: All systems reviewed & are unremarkable except as noted in HPI and below Exam Const: General: no acute distress Eyes: General: appearance normal, both eyes and all related structures Neck: Neck: supple and no JVD Thyroid: thyroid normal Resp: Effort & Inspection: normal respiratory effort Auscultation: clear to auscultation bilaterally Cardio: Rate: regular rate Rhythm: regular rhythm GI: Inspection: non-distended GI Palp: Yes Soft to palpation, No Tenderness to palpation present (GI) and No Guarding due to palpation present (GI) Auscultation: normal bowel sounds : General: Yes bladder normal to palpation External Female Exam: normal external appearance Speculum Exam - Vagina: normal vaginal discharge and No vaginal bleeding Speculum Exam - Cervix: nontender Bimanual exam- vagina & uterus: bladder normal to palpation and No Cervical tenderness present OB/external & speculum: No vaginal bleeding Skin: General skin exam: no rashes or lesions noted Extrem: General: normal to inspection and no edema Psych: Mental Status: mental status grossly normal Affect: normal affect
[2020-09-15 07:40] VITALS: BP 128/80; PULSE 70; RESP 16; TEMP 36.5; O2SAT 100
[2020-09-15] MEDS: MULTIVIT/MIN/PREN/FOL AC/IRON TABLET 1 TAB PO (08:31)
[2020-09-15] MEDS: DOCUSATE SODIUM 100 MG CAPSULE PO (08:31)
--- NOTE | 2020-09-15 10:10 | PC.NURSE ---
Patient viewed the discharge video Mother & Baby Care, The First Two Weeks . Patient was given the opportunity and encouraged to ask questions. Patient verbalized understanding of information shared and has been given the mother/baby guide for home reference.
--- NOTE | 2020-09-15 11:03 | PC.NURSE ---
Printed [place] prescription destroyed due to [place] prescription being transmitted.
[2020-09-17 08:23] VITALS: BP 142/96; PULSE 72; RESP 20; TEMP 36.8; O2SAT 100
== END 2020-09-15 11:40 | disposition home or self-care (01) | DRG 788 ==
LOC: ANHLDR 09-12 11:28 → ANHOB2 09-12 14:34
PROVIDERS: Admitting Provider Obstetrics & Gynecology; PCP Family Medicine; Visit Provider Obstetrics & Gynecology
PROC: 10D00Z1 Extraction of Products of Conception, Low, Open Approach (ICD-10-PCS; CPT 59514; principal; 2020-09-12 10:30)
DX: O62.1 Secondary uterine inertia (principal); O42.92 Full-term premature rupture of membranes, unspecified as to length of time between rupture and onset of labor; O33.9 Maternal care for disproportion, unspecified; O76 Abnormality in fetal heart rate and rhythm complicating labor and delivery; Z3A.41 41 weeks gestation of pregnancy; Z37.0 Single live birth
CPT/HCPCS: 36415; 59025; 80053; 81001; 82570; 84112; 84156; 84550; 85025; 86592; 86850; 86900; 86901; 87086; 87088; 88307; A9270; J0131; J0690; J1885; J2274; J2405; J2590; J2795; J3010; J7120

== ENCOUNTER 2020-09-22 11:43 | Outpatient (RCR) | payer BC, SELFPAY ==
--- NOTE | 2020-09-22 11:58 | PC.NURSE ---
IN 1015 OUT 1005 HISTORY: Pt. delivered at [facility] at 39 weeks. had no complications after delivery. Mother had no complications after delivery. Infant is now 9 days old. appears to be well cared for. has been seen by ICP as scheduled. Infant last seen by ICP on 09/18/20. Mother reports: Currently at 8-10 wets per day and 6 brown pasty stools per day. weight: 10#4 Discharge weight: 9#12 Last Weight: 10#2 will easily and eagerly latch each feeding with minimal discomfort every 3 hours. Mother feeds on both breasts per feeding 10-20 per breast, is not satisfied after and will supplement 2 oz of EBM/formula. Mother is pumping a few times per day after feedings, obtaining 5-10 mls. Mother is using a double electric pump without difficulties slight discomfort. Mother has small cracking to base of nipple from pumping. Advised to use lanolin before pumping and to decrease draw on pump. Mother wishes: To increase milk supply and decrease pumping and supplementation. OBSERVATION: Pre feeding weight: 4702 Post feeding weight: 4738 Tongue is able to move freely past gum ridge, both lips flange easily. Mother has everted nipples with skin intact no redness, blisters, scabbing or abrasions noted. Reviewed positioning/alignment, holding breast and asymmetrical latch on. Mother is able to latch infant correctly. Infant nursed eagerly, with steady draws and frequent swallowing noted for aprox 5-7 minutes, then began to slow with short chewy sucks. Infant released latch and eagerly latch to other breast. Small amounts of formula dribbled while infant nursing when he began to slow to increase time at breast. responded with increased nursing for several minutes. Reviewed signs of a correct latch, effective nursing and suck swallow ratio. was able to maintain latch without discomfort to mother. Infant released second breast, fussy and continues with feeding cues, parents then supplemented 2 oz of formula. Suggested mother pump after each feeding for 10-15 minutes to stimulate increased supply. Discussed increased stimulation may increase supply and may nurse long and also increase supply. may have increased intake and take less supplementation after feedings. Advised not to discontinue supplementation until next visit for pre/post weight check. PLAN: Mother will follow above feeding plan and pumping schedule. Mother will call with further questions or concerns. Follow up phone call scheduled for 09/23/2020.
== END 2020-10-27 13:37 | disposition home or self-care (01) ==
LOC: ANHOBOP 11:43
PROVIDERS: PCP Family Medicine; Visit Provider Pediatrics
DX: Z39.1 Encounter for care and examination of lactating mother (principal)
CPT/HCPCS: 99212; G0463

== ENCOUNTER 2024-07-20 11:01 | Outpatient (CLI) | payer BC, SELFPAY ==
--- OUTSIDE RECORDS SUMMARY | 2024-07-20 11:05 | XMS_ITS | Clinical Summary ---
Author Organization [place] [id number] [facility] Address [address] [place] [id number] Care Team Providers Care Fisher Mussel Name Role Phone No, Physician Unavailable Sreekanth Santana Primary Care Provider [phone] Allergies Active Allergy Reactions Criticality Noted Date Comments Amoxicillin Shortness of breath Reaction: Trouble Breathing, Amoxicillin Shortness of breath High 01/31/2015 Medications azithromycin (ZITHROMAX) 250 mg tablet Take 2 tabs (500 mg) by mouth today, than 1 daily for 4 days. 6 tablet 4 Active Additional Information Patient not taking.Reported on 02/15/2024 Active Problems Problem Noted Date Diagnosed Date Exophthalmus 08/16/2017 MVP (mitral valve prolapse) 08/15/2016 Bacterial upper respiratory infection 05/03/2016 Overview (07/01/2016): Bacterial URI Immunizations Immunization Administration Dates Next Due DTP 10/30/1990, 8,03/22/1986,12/14,1985 HiB 07/13/1987 Influenza, Quadrivalent, Rosa l Culture-based MDCK, Preservative Free, Antibiotic Free, Intramuscular 10/31/2019 Influenza, Quadrivalent, Spl it, Intramuscular 12/13/2015 Influenza, Quadrivalent, Spl it, Preservative Free, Intramuscular 11/10/2022,12/26/2021,10/24/2020,11/18,11/15/2017 Influenza, Trivalent, Preser vative Free, Intramuscular 11/17/2023,12/12/2015 MMR 10/30/1990,12/25/1986 OPV 10/30/1990, 8,03/22/1986,12/14,1985 Td, adsorbed 07/14/1999 Tdap 07/13/2020 Surgical History Surgery Date Site/Laterality Comments SECTION Medical History Medical History Date Comments Migraines Family History Medical History Relation Name Comments Cancer Father Reji Carmona Diabetes Father Reji Carmona Hyperlipidemia Father Reji Carmona Hypertension Father Reji Carmona Heart disease Mother Ana Lilia Carmona Hypertension Mother Ana Lilia Carmona Relation Name Status Comments Brother Alive Father Reji Carmona Alive Mother Ana Lilia Carmona Alive Social History Tobacco Use Types Packs/Day Years Used Date Smoking Tobacco: Never Smokeless Tobacco: Never Tobacco Cessation:Counseling Given: Not Answered Alcohol Use Standard Drinks/Week Comments Yes 5 (1 standard drink = 0.6 oz pur e alcohol) About one a day AUDIT-C Answer Date Recorded Q1: How often do you have a drink containing alcohol? Never 02/15/2024 Q2: How many drinks containi ng alcohol do you have on a typical day when you are drinking? Patient does not drink Q3: How often do you have si x or more drinks on one occasion? Never 02/15/2024 PHQ-2 Answer Date Recorded PHQ-2 Total Score (If total score is 3 or more points, staff should administer the PHQ-9) 0 02/15/2024 Comments No Sex and Gender Information Value Date Recorded Sex Assigned at Not on file Legal Sex Female 12:12 AM EXPORT FREIGHT SPECIALIST Gender Identity Female 09/02/2019 5:53 AM CDT Sexual Orientation Straight 09/02/2019 5: 53 AM CDT Obstetrics History Last Filed Vital Signs Vital Sign Reading Time Taken Comments Blood Pressure 120/78 02/15/2024 2:28 PM EXPORT FREIGHT SPECIALIST Pulse 74 02/15/2024 2:28 PM EXPORT FREIGHT SPECIALIST Temperature 36.7 C (98 F) 02/15/2024 2:28 PM EXPORT FREIGHT SPECIALIST Respiratory Rate 18 01/31/2023 8:39 AM EXPORT FREIGHT SPECIALIST Oxygen Saturation 99% 02/15/2024 2:28 PM EXPORT FREIGHT SPECIALIST Inhaled Oxygen Concentration - - Weight 76.7 kg (169 lb 3.2 oz) 02/15/2024 2:28 P M EXPORT FREIGHT SPECIALIST Height 165.1 cm (5' 5) 02/15/2024 2:28 PM EXPORT FREIGHT SPECIALIST Body Mass Index 28.16 02/15/2024 2:28 PM EXPORT FREIGHT SPECIALIST Plan of Treatment Health Maintenance Due Date Last Done Comments Cervical Cancer Screening 1985 Hepatitis C Screening 1985 Varicella Vaccines (1 of 2 - 13+ 2-dose series) 1998 Hepatitis B Screening 08/23/2003 Covid-19 Vaccine ( season) 2023 11/26/2021, 01/08/2021, 04/28/2020, Additional history exists Depression Screening 02/14/2025 02/15/2024, 02/09/2023, 12/29/2021, Additional history exists Regular Well Visit/Exam 18-64 02/14/2025 02/15/2024, 02/09/2023, 12/29/2021, Additional history exists DTaP/Tdap/Td Vaccine (7 - Td or Tdap) 07/13/2030 07/13/2020, 07/14/1999, 10/30/1990, Additional history exists Influenza Vaccine Completed 11/17/2023, , 12/26/2021, Additional history exists HPV Vaccines Aged Out No longer eligi ble based on patient's age to complete this topic Pneumococcal vaccine <65 Aged Out No longer eligible based on patient's age to complete this topic Insurance [facility] PLUS [facility] ACCESS CHOICE Care Teams Fisher Mussel Relationship Specialty Start Date End Date Sreekanth Santana PA PCP - General Family Medicine 11/03/21 No, Physician 07/16/18
--- OUTSIDE RECORDS SUMMARY | 2024-07-20 11:05 | XMS_ITS | Referral Summary ---
Author Organization [place] [id number] [facility] Address [address] [place] [id number] Care Team Providers Care Fabrication Technician Name Role Phone No, Physician Unavailable Sreekanth Santana Primary Care Provider [phone] Allergies Active Allergy Reactions Criticality Noted Date [...] 10/30/1990, 8,03/22/1986,12/14,1985 Td, adsorbed 07/14/1999 Tdap 07/13/2020 Social History Tobacco Use Types Packs/Day Years [...] on file Legal Sex Female 12:12 AM FLEXOGRAPHIC PRINTING MACHINIST Gender Identity Female 09/02/2019 5:53 AM CDT Sexual Orientation Straight 09/02/2019 5: 53 AM CDT Last Filed Vital Signs Vital Sign Reading Time Taken Comments Blood Pressure 120/78 02/15/2024 2:28 PM FLEXOGRAPHIC PRINTING MACHINIST Pulse 74 02/15/2024 2:28 PM FLEXOGRAPHIC PRINTING MACHINIST Temperature 36.7 C (98 F) 02/15/2024 2:28 PM FLEXOGRAPHIC PRINTING MACHINIST Respiratory Rate 18 01/31/2023 8:39 AM FLEXOGRAPHIC PRINTING MACHINIST Oxygen Saturation 99% 02/15/2024 2:28 PM FLEXOGRAPHIC PRINTING MACHINIST Inhaled Oxygen Concentration - - Weight 76.7 kg (169 lb 3.2 oz) 02/15/2024 2:28 P M FLEXOGRAPHIC PRINTING MACHINIST Height 165.1 cm (5' 5) 02/15/2024 2:28 PM FLEXOGRAPHIC PRINTING MACHINIST Body Mass Index 28.16 02/15/2024 2:28 PM FLEXOGRAPHIC PRINTING MACHINIST Plan of Treatment Not on file Insurance [facility] CHOICE PLUS [facility]ESS CHOICE Care Teams Fabrication Technician Relationship Specialty Start Date End Date Sreekanth Santana PA PCP - General Family Medicine 11/03/21 No, Physician 07/16/18
--- OUTSIDE RECORDS SUMMARY | 2024-07-20 11:05 | XMS_ITS | Clinical Summary ---
Author Organization [facility] Address [address] [place] [address] [place] [address] Care Team Providers Care Program Director Substance Abuse Name Role Phone Karri Nash MD Primary Care Provider [phone] Allergies Active Allergy Reactions Criticality Noted Date Comments Amoxicillin Shortness of Breath/Wheezing High 01/31/2015 Reaction: Trouble Breathing, Medications No known medications Active Problems No known active problems Encounters Date Type Department Care Team Description 06/27/2024 External Device Data [facility] Provider, Abstract 06/26/2024 External Device Data [facility] Provider, Abstract 06/25/2024 External Device Data [facility] Provider, Abstract 05/21/2024 External Device Data [facility] Provider, Abstract 04/24/2024 External Device Data [facility] Provider, Abstract 04/24/2024 External Device Data [facility] Provider, Abstract from Last 3 Months Immunizations Immunization Administration Dates Next Due INFLUENZA VACCINE QUADRIVALENT 6 MOS UP PF IM INFLUENZA VACCINE TRIVALENT SPLIT VIRUS, (6 MOS UP), 0.5ML (PF), IM 11/17/2023 Social History Tobacco Use Types Packs/Day Years Used Date Smoking Tobacco: Never Tobacco Cessation:Counseling Given: Not Answered Comments Unknown Sex and Gender Information Value Date Recorded Sex Assigned at Not on file Legal Sex Female 9:48 PM CDT Gender Identity Not on file Sexual Orientation Not on file Last Filed Vital Signs Vital Sign Reading Time Taken Comments Blood Pressure 124/83 04/21/2022 11:09 AM CDT Pulse 81 04/21/2022 11:09 AM CDT Temperature 36.6 C (97.8 F) 04/21/2022 11:09 AM CDT Respiratory Rate 20 04/21/2022 11:09 AM CDT Oxygen Saturation 99% 04/21/2022 11:09 AM CDT Inhaled Oxygen Concentration - - Weight 72.6 kg (160 lb) 04/21/2022 11:09 AM CDT Height 167.6 cm (5' 6) 04/21/2022 11:09 AM CDT Body Mass Index 25.82 04/21/2022 11:09 AM CDT Plan of Treatment Health Maintenance Due Date Last Done Comments DTAP/TDAP/TD VACCINES (6 - Tdap) 1996 10/30/1990, 11/28/1987, 03/22/1986, Additional history exists HEPATITIS B VACCINES (1 of 3 - 19+ 3-dose series) 2004 HPV/Cotest (21-29) 2006 CERVICAL CANCER SCREENING 08/23/2015 HPV/Cotest (30-65) 08/23/2015 PAP SMEAR 08/23/2015 INFLUENZA VACCINE Completed 11/17/2023, , 10/31/2019, Additional history exists HPV VACCINES Aged Out No longer eligi ble based on patient's age to complete this topic Insurance [employer] [facility] [employer] Care Teams Program Director Substance Abuse Relationship Specialty Start Date End Date Karri Nash MD PCP - General Family Practice 04/21/22
[2024-07-20 11:43] LABS: Hematocrit 36.9 % (37.0-47.0); Hemoglobin 12.2 g/dL (12.0-15.0); Mean Corpuscular HGB Conc 33.1 g/dl (32-36); Mean Corpuscular Hemoglobin 31.5 pg (26-34); Mean Corpuscular Volume 95.3 fl (80-100); Mean Platelet Volume 12.9 fl (7.4-10.4); Platelet Count Result 115 k/mm3 (150-375); Red Blood Count 3.87 M/mm3 (4.2-5.4); Red Cell Distribution Width 14.1 % (11.5-14.5); White Blood Count 6.9 K/mm3 (4.5-10.0)
[2024-07-20 12:24] LABS: Syphilis IgG/IgM Antibody Non-Reactive (Nonreactive)
== END 2024-07-20 11:02 | disposition home or self-care (01) ==
LOC: ANHLAB 11:04
PROVIDERS: PCP Physician Assistant Medical; Visit Provider Obstetrics & Gynecology
DX: Z01.818 Encounter for other preprocedural examination (principal)
CPT/HCPCS: 36415; 85027; 85055; 86593; 86850; 86900; 86901

== ENCOUNTER 2024-07-23 10:10 | Inpatient (IN) | payer BC, SELFPAY ==
--- NOTE | 2024-07-22 16:43 | PM.IMHP ---
H&P: HPI History of Present Illness Date/Time: 07/22/24 16:43 Chief Complaint: Term at 41 weeks with previous section large baby Narrative: A 38-year-old 2 para 1 with previous whose last menstrual period was 10/15/2023, EDC is 07/19/2024, presents at 40-,4/7 weeks gestation for repeat section. Her cervix is unfavorable she has had mildly elevated blood pressures. A 2 had failed progress 1st time. She had thought about but has changed her mind undergo section risks and benefits reviewed Review of Systems Review of Systems: All systems reviewed & are unremarkable except as noted in HPI and below PMFSH Past Medical History Medical History Overweight (BMI 25.0-29.9) and not yet delivered Family History Family History Father Diabetes mellitus Hypertension Skin cancer Mother Diabetes mellitus Hypertension Social History Social History Smoking status: Never smoker Substance use: never Gender identity (if verbalized by the patient): Female Sexual Orientation (if Verbalized by the Patient): Straight or Heterosexual Spiritual care concerns: No Meds Home Medications and Allergies Home Medications ?Medication ?Instructions ?Recorded ?Confirmed ?Type vitamin no.138-folic acid 1 tablet PO QAM 08/10/20 06/21/24 History 400 mcg-dha 25 mg chewable tablet (Alive ) Allergies Allergy/AdvReac Type Severity Reaction Status Date / Time amoxicillin Allergy Hives Verified 06/21/24 14:56 Exam Const: General: cooperative, healthy appearing, comfortable and average body habitus Orientation/consciousness: oriented to person, oriented to place and oriented to time HENMT: Head: normal to inspection Resp: Effort & Inspection: normal respiratory effort Cardio: Rate: regular rate Rhythm: regular rhythm Heart sounds: S1 normal heart sound present and S2 normal heart sound present GI: Inspection: normal to inspection (Gravid soft uterus) Auscultation: normal bowel sounds Assessment and Plan Assessment and plan (1) Term : Code(s): Z34.90 - Encounter for supervision of normal , unspecified, unspecified trimester Status: Acute (2) Previous section: Code(s): Z98.891 - History of uterine scar from previous surgery Status: Acute Plan Will proceed with repeat low-transverse section
[2024-07-23] VITALS (42 sets, daily range): BP systolic 96–128; BP diastolic 55–93; PULSE 45–88; RESP 14–21; TEMP 35.5–36.8; O2SAT 97–100; BMI 32.0
--- NOTE | 2024-07-23 06:29 | WPDHPUPDATE1 ---
History and Physical Update Update Date/Time: 07/23/24 06:29 History and Physical has been reviewed, including an updated exam of the patient. There are NO changes in the patient's condition. Risks, benefits, and alternatives have been discussed and questions answered. Patient agrees to proceed with procedure.
[2024-07-23] MEDS: LACTATED RINGERS 1,000 ML 125 ML IV CONT (10:57)
[2024-07-23] MEDS: ACETAMINOPHEN 500 MG TABLET 1000 MG PO ×2 (10:57→18:00)
--- NOTE | 2024-07-23 11:05 | LDADM ---
This patient, Hailey Vu, was admitted to Labor/Delivery/Recovery 120 on 07/23/24 at 10:10. Plans for labor, pain management and were discussed with patient. Patient/family oriented to hospital policies and general routines including ID bracelet, bed and alarms, visiting hours, pain management, procedures, bathroom and other care routines, personal items, smoking policy, room service/diet and guest tray routines, security routines, and visiting hours. Patient/Family are encouraged to report perceived risks to care and to ask questions if they do not understand what they are told or what they should do. See OBIX for further documentation.
--- NOTE | 2024-07-23 11:19 | WPDANESEPPF ---
Anes - Initial Pre Proc Eval Procedure: Operation Date: 07/23/24 12:00 Proposed Procedures p Repeat Section - Karri Jacobo MD Date/Time: 07/23/24 11:19 Surgeon: Karri Jacobo MD Pre Op Diagnosis: Repeat Patient Data Age: 38 Gender: F Height: 1.68 m Weight: 90 kg Last Vital Signs Pulse 74 07/23/24 11:05 BP 128/89 07/23/24 11:05 O2 Del Method Room Air 07/23/24 11:04 Allergies Allergy/AdvReac Type Severity Reaction Status Date / Time amoxicillin Allergy Hives Verified 07/23/24 11:11 Home Medications ?Medication ?Instructions ?Recorded ?Confirmed ?Type vitamin no.138-folic acid 1 tablet PO QAM 08/10/20 07/23/24 History 400 mcg-dha 25 mg chewable tablet (Alive ) hydrocodone 5 mg-acetaminophen 325 1 tablet PO Q4H PRN pain #20 tabs 07/23/24 Rx mg tablet Laboratory Tests 07/23/24 10:26 HIV 1&2 Ab/P24 Ag 4thGn Pending : gestational age (BLADIMIR 07/19/24) Patient hx anesthesia problems: none Family hx anesthesia problems: none Results Review: All pre-operative results and documents have been reviewed as part of the pre-operative evaluation. [facility] Past Medical History Medical History Overweight (BMI 25.0-29.9) and not yet delivered Family History Family History Father Diabetes mellitus Hypertension Skin cancer Mother Diabetes mellitus Hypertension Social History Social History Smoking status: Never smoker Substance use: never Do You Feel Safe in your Home?: Yes Lack of Transportation: No Lack of Food: Never True Current Housing: I Have Housing Concerned About Future Housing: No Difficulty Paying Gas/Electric Bills: No Difficulty Paying for Meds: No Currently Unemployed: No Education: Master's Degree or Higher Difficulty w/ Childcare or Family Care: No Gender identity (if verbalized by the patient): Female Sexual Orientation (if Verbalized by the Patient): Straight or Heterosexual Spiritual care concerns: No Anes - Eval Final PreProcedure Day of Procedure 07/23/24 11:19 Patient weight: obese Lungs: normal air movement Neurological: alert and oriented Last oral intake: >/= 8 hours ASA classification: II Emergent: no Anesthetic plan: proceed Anesthesia type and monitoring: regional spinal and standard monitoring Results Review: All pre-operative results and documents have been reviewed as part of the pre-operative evaluation. Informed Consent: The patient's anesthetic plan and its attendant risks and benefits were discussed with the patient/family/POA. Questions were solicited and answers provided to the satisfaction of the patient/family/POA.
--- OUTSIDE RECORDS SUMMARY | 2024-07-23 11:23 | XMS_ITS | Clinical Summary ---
Author Organization [facility] Address [address] [place] [address] [place] [address] Care Team Providers Care Automotive Refinisher Name Role Phone Karri Nash MD Primary Care Provider [phone] Allergies Active Allergy Reactions Criticality Noted Date [...] patient's age to complete this topic Insurance [employer] [facility] [employer] Care Teams Automotive Refinisher Relationship Specialty Start Date End Date Karri Nash MD PCP - General Family Practice 04/21/22
--- OUTSIDE RECORDS SUMMARY | 2024-07-23 11:23 | XMS_ITS | Referral Summary ---
Author Organization [place] [id number] Address [address] [place] [id number] Care Team Providers Care Jet Operator Name Role Phone No, Physician Unavailable Sreekanth Santana Primary Care Provider [phone] Allergies Active Allergy Reactions Criticality Noted Date [...] on file Legal Sex Female 12:12 AM UPSTREAM BIOMANUFACTURING TECHNICIAN Gender Identity Female 09/02/2019 5:53 AM CDT Sexual Orientation Straight 09/02/2019 5: 53 AM CDT Last Filed Vital Signs Vital Sign Reading Time Taken Comments Blood Pressure 120/78 02/15/2024 2:28 PM UPSTREAM BIOMANUFACTURING TECHNICIAN Pulse 74 02/15/2024 2:28 PM UPSTREAM BIOMANUFACTURING TECHNICIAN Temperature 36.7 C (98 F) 02/15/2024 2:28 PM UPSTREAM BIOMANUFACTURING TECHNICIAN Respiratory Rate 18 01/31/2023 8:39 AM UPSTREAM BIOMANUFACTURING TECHNICIAN Oxygen Saturation 99% 02/15/2024 2:28 PM UPSTREAM BIOMANUFACTURING TECHNICIAN Inhaled Oxygen Concentration - - Weight 76.7 kg (169 lb 3.2 oz) 02/15/2024 2:28 P M UPSTREAM BIOMANUFACTURING TECHNICIAN Height 165.1 cm (5' 5) 02/15/2024 2:28 PM UPSTREAM BIOMANUFACTURING TECHNICIAN Body Mass Index 28.16 02/15/2024 2:28 PM UPSTREAM BIOMANUFACTURING TECHNICIAN Plan of Treatment Not on file Insurance [facility] CHOICE PLUS [facility] ACCESS CHOICE Care Teams Jet Operator Relationship Specialty Start Date End Date Sreekanth Santana PA PCP - General Family Medicine 11/03/21 No, Physician 07/16/18
--- OUTSIDE RECORDS SUMMARY | 2024-07-23 11:23 | XMS_ITS | Clinical Summary ---
Author Organization [place] [id number] Address [address] [place] [id number] Care Team Providers Care Invasive Cardiovascular Technologist Name Role Phone No, Physician Unavailable Sreekanth Santana Primary Care Provider [phone] Allergies Active Allergy Reactions Criticality Noted Date [...] on file Legal Sex Female 12:12 AM DOOR TO DOOR LEAD GENERATION Gender Identity Female 09/02/2019 5:53 AM CDT Sexual Orientation Straight 09/02/2019 5: 53 AM CDT Obstetrics History Last Filed Vital Signs Vital Sign Reading Time Taken Comments Blood Pressure 120/78 02/15/2024 2:28 PM DOOR TO DOOR LEAD GENERATION Pulse 74 02/15/2024 2:28 PM DOOR TO DOOR LEAD GENERATION Temperature 36.7 C (98 F) 02/15/2024 2:28 PM DOOR TO DOOR LEAD GENERATION Respiratory Rate 18 01/31/2023 8:39 AM DOOR TO DOOR LEAD GENERATION Oxygen Saturation 99% 02/15/2024 2:28 PM DOOR TO DOOR LEAD GENERATION Inhaled Oxygen Concentration - - Weight 76.7 kg (169 lb 3.2 oz) 02/15/2024 2:28 P M DOOR TO DOOR LEAD GENERATION Height 165.1 cm (5' 5) 02/15/2024 2:28 PM DOOR TO DOOR LEAD GENERATION Body Mass Index 28.16 02/15/2024 2:28 PM DOOR TO DOOR LEAD GENERATION Plan of Treatment Health Maintenance Due Date [...] patient's age to complete this topic [facility] Address: [facility] [id number] [place] [address] [facility] CHOICE PL[facility] ACCESS [facility]ICE [facility] Address: [address] [place] [address] Care Teams Invasive Cardiovascular Technologist Relationship Specialty Start Date End Date Sreekanth Santana PA PCP - General Family Medicine 11/03/21 No, Physician 07/16/18
[2024-07-23 11:39] LABS: HIV 1/2 Ab P24 Ag Result Negative (Negative)
[2024-07-23] MEDS: ONDANSETRON INJ 4 MG/2 ML VIAL IV PUSH (11:45)
[2024-07-23] MEDS: FAMOTIDINE 20 MG/2 ML VIAL IV PUSH (11:45)
--- NOTE | 2024-07-23 11:49 | P.PNAN_ITS ---
Anes - Eval Final PreProcedure Day of Procedure 07/23/24 11:49 Patient weight: obese Heart: regular rate and rhythm Lungs: clear to auscultation Airway: Mallampati scale class II Neurological: alert and oriented Last oral intake: >/= 8 hours ASA classification: II Emergent: no Anesthetic plan: proceed Anesthesia type and monitoring: regional spinal and standard monitoring Other findings: exam per LW Results Review: All pre-operative results and documents have been reviewed as part of the pre- operative evaluation. Informed Consent: The patient's anesthetic plan and its attendant risks and benefits were discussed with the patient/family/POA. Questions were solicited and answers provided to the satisfaction of the patient/family/POA.
--- NOTE | 2024-07-23 12:57 | W.PM.OBCSD ---
OB - Delivery Note Procedure Delivery date: 07/23/24 Pre-op diagnosis: Previous Delivery Post-op Diagnosis: Same Induction method: None Delivery monitor: External FHT Prior to decision for section, ACOG/SMFM labor guidelines were considered and discussed with the patient and staff. Decision made to proceed with the section.: Yes Procedure Performed: Repeat Surgeon: Karri Jacobo MD Anesthesia type: Spinal Description of Procedure/Findings: Patient was prepped draped in sterile fashion placed in the position spinal anesthetic entered sterile fashion progressive layers fashion fascia was incised carried in upward our fashion the underlying muscles were sharply dissected. Parietal peritoneum male by [place] clamps and by sharp dissection carried superiorly and inferiorly to the dome of the bladder. Bladder blade was placed. Bladder flap was formed. Bladder blade returned. A low transverse incision made in the head delivered in the DENY position. Anterior posterior shoulder delivered spontaneously. Cord clamped x2 and cut the infant passed off the table given Apgars of 9 [id number] 9 [id number]. Cord blood was drawn. Placenta delivered intact manually. Uterus delivered from the abdomen wrapped in a moist towel after assuring no membranes or debris remained in the uterus, the uterus was closed with continuous running 0 Vicryl from lateral edge to lateral edge. This was followed by 2nd imbricating running locking Vicryl from lateral edge to lateral edge. Hemostasis was assured. Ovaries and tubes appeared within normal limits. Uterus returned to the abdomen. The hysterotomy incision inspected 1 last time and noted be hemostatic. Laps removed and accounted for. The fascia closed with continuous running 0 Vicryl from lateral edge to lateral edge. The skin was closed with 4 Monocryl and glue. QBL was 570cc. All sponge, needle, instrument counts were correct. There were no immediate complications Estimated Blood Loss: 570 Drains: No Packing: No Pathology: None sent Complications: No immediate complications Condition: Stable Disposition: PACU [place] Baby Date of : 07/23/24 Time of : 12:33 Gestational Age by Date: 40 gender: Male Weight (pounds): 9 Weight (ounces): 11 presentation: vertex position: Right Occiput Anterior Placenta delivery description: Manual Removal Cord Vessel Description: 3 Vessels score one minute: 9
--- NOTE | 2024-07-23 13:00 | P.DS_ITS ---
DS: Admitting Diagnosis Discharge Date 07/26/2024 Admitting Diagnosis Term /previous section DS: Discharge Diagnosis Discharge Diagnosis (1) Term : Code(s): Z34.90 - Encounter for supervision of normal , unspecified, unspecified trimester Status: Acute (2) delivery delivered: Code(s): O82 - Encounter for delivery without indication Status: Acute DS: Summary Hospital Course Reason for hospitalization: Patient was admitted on 07/23 24 for repeat section underwent an unremarkable procedure Hospital Course: Patient's hospital course unremarkable. She remained afebrile. She was up, voiding without difficulty, eating regular diet, ambulating, and generally without complaints. Time Spent with Patient Time attestation: Total time spent providing and/or coordinating discharge services: Exam Const: General: cooperative, healthy appearing and comfortable Nutritional Appearance: average body habitus HENMT: Head: normal to inspection Resp: Effort & Inspection: normal respiratory effort Cardio: Rate: regular rate Rhythm: regular rhythm Heart sounds: S1 normal heart sound present and S2 normal heart sound present GI: Inspection: normal to inspection and incision (Wound is clean dry and intact) DS: Data Data Completed and Pending Labs on day of discharge: Labs from last 24 hours 07/23/24 10:26 HIV 1&2 Ab/P24 Ag 4thGn Negative Discharge Plan Discharge Attending physician on discharge: Karri Schrader Discharging Clinician: Karri Schrader Patient Disposition: Home Activity: may shower, no straining, may drive after 2 weeks and pelvic rest Diet: heart healthy Wound Care Instructions: follow printed instructions Patient Instructions: Antibiotic Form Patient Language: [place] Citizen Stand Alone Forms: General Discharge Information Follow-up/Referrals: Karri Schrader MD [Physician] - Discharge Medications: New hydrocodone-acetaminophen 5-325 mg tablet 1 tablet PO Q4H PRN (Reason: pain) Qty: 20 0RF Continued Alive 400 mcg- 25 mg Tablet,Chewable 1 tablet PO QAM Date of admission: 07/23/24 10:10 Primary Care Provider: UrszulaSreekanth Admitting Provider: Karri Schrader Attending physician on admission: Karri Schrader Condition: Stable
[2024-07-23] MEDS: diphenhydrAMINE HCl INJ 50 MG/ML VIAL 25 MG IV PUSH (15:19)
--- NOTE | 2024-07-23 15:25 | OBPPTRN ---
Patient transferred to post room #292 via stretcher. Support person present. Oriented to unit, room, information board, rooming in, admission packet and security measures. Patient verbalizes understanding.
[2024-07-23] MEDS: SIMETHICONE 80 MG TAB.CHEW PO (18:57)
[2024-07-23] MEDS: DOCUSATE SODIUM 100 MG CAPSULE PO (18:57)
[2024-07-23] MEDS: KETOROLAC 15 MG/ML VIAL (*BKC) IV PUSH (19:00)
[2024-07-24] MEDS: KETOROLAC 15 MG/ML VIAL (*BKC) IV PUSH ×2 (00:09→07:47)
[2024-07-24] MEDS: ACETAMINOPHEN 500 MG TABLET 1000 MG PO ×4 (00:09→20:11)
[2024-07-24 00:38] VITALS: BP 114/70; PULSE 70; RESP 16; TEMP 36.7; O2SAT 98
[2024-07-24 04:15] VITALS: BP 109/72; PULSE 62; RESP 18; TEMP 36.7; O2SAT 100
[2024-07-24 04:53] LABS: Basophils Percent Auto 0.4 % (0.2-1.2); Eosinophils Absolute Auto 0.1 K/mm3 (0-0.3); Eosinophils Percent Auto 0.8 % (0-4.4); Hematocrit 31.3 % (37.0-47.0); Hemoglobin 10.3 g/dL (12.0-15.0); Immature Granulocyte Absolute 0.06 K/mm3 (0.00-0.031); Immature Granulocyte Percent A 0.6 % (0-0.5); Immature Platelet Fraction Pct 11.3 % (0.9-11.2); Lymphocytes Absolute Auto 2.51 K/mm3 (0.9-3.2); Mean Corpuscular HGB Conc 32.9 g/dl (32-36); Mean Corpuscular Hemoglobin 31.5 pg (26-34); Mean Corpuscular Volume 95.7 fl (80-100); Mean Platelet Volume 12.6 fl (7.4-10.4); Monocytes Absolute Auto 0.8 K/mm3 (0.1-0.6); Monocytes Percent Auto 7.9 % (2.6-8.5); Neutrophils Percent Auto 66.3 % (45.5-73.1); Platelet Count Result 124 k/mm3 (150-375); Red Blood Count 3.27 M/mm3 (4.2-5.4); Red Cell Distribution Width 13.8 % (11.5-14.5); White Blood Count 10.5 K/mm3 (4.5-10.0)
--- NOTE | 2024-07-24 06:53 | PM.OBPNVD ---
OB - PN: Subj Subjective Date/time seen: 07/24/24 06:53 Patient comments: no complaints, pain well controlled, tolerating diet and flatus present [place] baby status: other (level 2) OB - PN: Obj Data Labs 07/24/24 03:31 Labs: Laboratory Results - last 24 hr 07/23/24 07/24/24 10:26 03:31 WBC 10.5 H RBC 3.27 L Hgb 10.3 L Hct 31.3 L MCV 95.7 MCH 31.5 MCHC 32.9 RDW 13.8 Plt Count 124 L MPV 12.6 H Immature Gran % (Auto) 0.6 H Neut % (Auto) 66.3 Lymph % (Auto) 24.0 [place] % (Auto) 7.9 Eos % (Auto) 0.8 Baso % (Auto) 0.4 Lymph # (Auto) 2.51 [place] # (Auto) 0.8 H Eos # (Auto) 0.1 Baso # (Auto) 0.0 Abs Immat Gran (auto) 0.06 H Absolute Neuts (auto) 7.0 H Absolute Nucleated RBC 0.000 Nucleated RBC % 0.0 % Immature Plt Fraction 11.3 H HIV 1&2 Ab/P24 Ag 4thGn Negative OB - PN A/P Assessment and Plan (1) delivery delivered: Code(s): O82 - Encounter for delivery without indication Status: Acute (2) Term : Code(s): Z34.90 - Encounter for supervision of normal , unspecified, unspecified trimester Status: Acute Plan routine care Time Spent With Patient Time: Total time spent is greater than 50% in coordination of care (as documented) at patient's floor/unit and/or counseling patient: Review of Systems Review of Systems: All systems reviewed & are unremarkable except as noted in HPI and below Exam Const: General: cooperative, healthy appearing and comfortable Nutritional Appearance: average body habitus Orientation/consciousness: oriented to person, oriented to place and oriented to time HENMT: Head: normal to inspection Resp: Effort & Inspection: normal respiratory effort Cardio: Rate: regular rate Rhythm: regular rhythm Heart sounds: S1 normal heart sound present and S2 normal heart sound present GI: Inspection: normal to inspection and incision (cdi)
[2024-07-24] MEDS: MULTIVIT/MIN/PREN/FOL AC/IRON TABLET 1 TAB PO (07:47)
[2024-07-24] MEDS: DOCUSATE SODIUM 100 MG CAPSULE PO ×2 (07:47→20:10)
[2024-07-24 07:55] VITALS: BP 115/87; PULSE 64; RESP 18; TEMP 36.6; O2SAT 100
[2024-07-24] MEDS: SIMETHICONE 80 MG TAB.CHEW PO ×3 (07:56→20:10)
[2024-07-24 12:38] VITALS: BP 114/77; PULSE 56; RESP 16; TEMP 36.6; O2SAT 100
--- NOTE | 2024-07-24 14:00 | PC.NURSE ---
Introductions were made, then consulted with patient to assess needs related to . Discussed with mother her plans to feed her and the experience so far. Baby is in the Level 2 nursery on D10. Mom has been going down to breastfeed. She states that he latches and feeds well for about ten minutes and then is supplemented with formula. She has concerns about her milk supply and we reviewed normal expectations in the immediate period. Her brought her breast pump from home and she is encouraged to pump after feedings when desired or if baby does not breastfeed well. Resources provided for inpatient and outpatient services with the feeding sheet, mom/baby guide and name written on the communication board. Mother voiced understanding of information and will call if there is a request for assistance. Reported to the Primary RN.?
[2024-07-24] MEDS: IBUPROFEN 600 MG TABLET PO ×2 (14:01→20:11)
--- NOTE | 2024-07-24 14:34 | P.PNAN_ITS ---
Anes - Prog Note Post-Op Date/Time: 07/24/24 14:34 Cardiovascular status: normal Respiratory status: normal Airway patency: baseline Mental status: baseline Post-Op hydration status: normal Vital Signs: Last Vital Signs Temp 97.8 F 07/24/24 12:38 Pulse 56 L 07/24/24 12:38 Resp 16 07/24/24 12:38 BP 114/77 07/24/24 12:38 Pulse Ox 100 07/24/24 12:38 O2 Del Method Room Air 07/23/24 15:00 Pain Score (VAS): 0/10 I/O: Intake & Output 07/23/24 07/24/24 07/24/24 23:59 07:59 15:59 Output Total 350 600 Balance -350 -600 Laboratory Tests 07/24/24 03:31 07/24/24 03:31 WBC 10.5 H RBC 3.27 L Hgb 10.3 L Hct 31.3 L MCV 95.7 MCH 31.5 MCHC 32.9 RDW 13.8 Plt Count 124 L MPV 12.6 H Immature Gran % (Auto) 0.6 H Neut % (Auto) 66.3 Lymph % (Auto) 24.0 [place] % (Auto) 7.9 Eos % (Auto) 0.8 Baso % (Auto) 0.4 Lymph # (Auto) 2.51 [place] # (Auto) 0.8 H Eos # (Auto) 0.1 Baso # (Auto) 0.0 Abs Immat Gran (auto) 0.06 H Absolute Neuts (auto) 7.0 H Absolute Nucleated RBC 0.000 Nucleated RBC % 0.0 % Immature Plt Fraction 11.3 H Post-procedural complaints: none Patient Feedback: Patient satisfied with anesthetic care.
--- NOTE | 2024-07-24 14:50 | WPDANLDPN2 ---
Anes-Prog Note L&D Date/Time: 07/24/24 14:50 Comfortable throughout: section Neuraxial method: spinal Epidural/Spinal procedure site: clean & non-tender Neuro status: Neuro function grossly intact. Cardiovascular status: normal Respiratory status: normal Airway patency: baseline Mental status: baseline Post-Op hydration status: normal Vital Signs: Last Vital Signs Temp 97.8 F 07/24/24 12:38 Pulse 56 L 07/24/24 12:38 Resp 16 07/24/24 12:38 BP 114/77 07/24/24 12:38 Pulse Ox 100 07/24/24 12:38 O2 Del Method Room Air 07/23/24 15:00 Pain score (VAS): 0/10 I/O: Intake & Output 07/23/24 07/24/24 07/24/24 23:59 07:59 15:59 Output Total 350 600 Balance -350 -600 Post-procedural complaints: none Patient feedback: Patient satisfied with anesthetic care. Pt noted to have itching, gave RN order for Loratadine PO 10mg
--- NOTE | 2024-07-24 14:51 | WPDANLDNPN2 ---
Anes-Prog Note L&D-Neuraxial Date/Time: 07/24/24 14:51 Neuraxial medications: intrathecal PF morphine Opiod-related complaints: pruritis Patient feedback: Patient satisfied with post-operative pain management.
[2024-07-24] MEDS: LORATADINE 10 MG TABLET PO (15:01)
[2024-07-24 20:00] VITALS: BP 127/87; PULSE 68; RESP 16; TEMP 36.8; O2SAT 99
[2024-07-24] MEDS: LIDOCAINE 5% PATCH 1 PATCH TRANSDERM (20:13)
[2024-07-25] MEDS: IBUPROFEN 600 MG TABLET PO ×3 (02:08→14:05)
[2024-07-25] MEDS: ACETAMINOPHEN 500 MG TABLET 1000 MG PO ×3 (02:08→14:05)
--- NOTE | 2024-07-25 06:37 | P.PNOB_ITS ---
OB - PN: Subj Subjective Date/time seen: 07/25/24 06:37 Patient comments: no complaints, pain well controlled, tolerating diet and flatus present feeding status: other (level 2) OB - PN: Obj Data Labs 07/24/24 03:31 OB - PN A/P Assessment and Plan (1) delivery delivered: Code(s): O82 - Encounter for delivery without indication Status: Acute (2) Term : Code(s): Z34.90 - Encounter for supervision of normal , unspecified, unspecified trimester Status: Acute Plan routine care Time Spent With Patient Time: Total time spent is greater than 50% in coordination of care (as documented) at patient's floor/unit and/or counseling patient: Review of Systems 2 Review of Systems: All systems reviewed & are unremarkable except as noted in HPI and below Exam 2 Const: General: cooperative, healthy appearing and comfortable Nutritional Appearance: average body habitus Orientation/consciousness: oriented to person, oriented to place and oriented to time HENMT: Head: normal to inspection Resp: Effort & Inspection: normal respiratory effort Cardio: Rate: regular rate Rhythm: regular rhythm Heart sounds: S1 normal heart sound present and S2 normal heart sound present GI: Inspection: normal to inspection and incision (cdi)
[2024-07-25] MEDS: MULTIVIT/MIN/PREN/FOL AC/IRON TABLET 1 TAB PO (07:51)
[2024-07-25] MEDS: DOCUSATE SODIUM 100 MG CAPSULE PO ×2 (07:51→18:15)
[2024-07-25] MEDS: SIMETHICONE 80 MG TAB.CHEW PO ×3 (07:51→18:15)
[2024-07-25 07:55] VITALS: BP 121/86; PULSE 86; RESP 18; TEMP 36.7; O2SAT 99
--- NOTE | 2024-07-25 13:43 | PC.NURSE ---
Mother verbalizes she is able to independently latch with appropriate positioning and alignment. She denies any nipple discomfort and is responsively and supplementing with formula each feeding. Infant is currently meeting outcomes for weight, output, jaundice, blood sugar and feeding frequencies of 8-12 times in 24 hours. Baby has been off IV fluids since this morning and is currently needing 1 more blood sugar over 60 to discontinue glucose checks. Mother declines any additional assistance or education at this time. Mother is encouraged to call for assistance if her infant doesn?t latch, pain with latching, questions or concerns. Mother voiced understanding of information shared along with the mom/baby guide for an additional resource. Reported to the Primary RN.
[2024-07-25 20:00] VITALS: BP 126/84; PULSE 72; RESP 16; TEMP 36.8; O2SAT 100
[2024-07-26] MEDS: ACETAMINOPHEN 500 MG TABLET 1000 MG PO ×2 (00:05→06:26)
[2024-07-26] MEDS: IBUPROFEN 600 MG TABLET PO ×2 (00:05→06:26)
[2024-07-26 01:00] VITALS: BP 126/83; PULSE 76; RESP 18; TEMP 36.4; O2SAT 98
--- NOTE | 2024-07-26 04:51 | P.PNOB_ITS ---
OB - PN: Subj Subjective Date/time seen: 07/26/24 04:51 Patient comments: no complaints, pain well controlled, tolerating diet and flatus present baby status: doing well OB - PN: Obj Data Labs 07/24/24 03:31 OB - PN A/P Assessment and Plan (1) delivery delivered: Code(s): O82 - Encounter for delivery without indication Status: Acute (2) Term : Code(s): Z34.90 - Encounter for supervision of normal , unspecified, unspecified trimester Status: Acute (3) Previous section: Code(s): Z98.891 - History of uterine scar from previous surgery Status: Acute Plan home Time Spent With Patient Time: Total time spent is greater than 50% in coordination of care (as documented) at patient's floor/unit and/or counseling patient: Review of Systems 2 Review of Systems: All systems reviewed & are unremarkable except as noted in HPI and below Exam 2 Const: General: cooperative, healthy appearing and comfortable Nutritional Appearance: average body habitus Orientation/consciousness: oriented to person, oriented to place and oriented to time HENMT: Head: normal to inspection Resp: Effort & Inspection: normal respiratory effort Cardio: Rate: regular rate Rhythm: regular rhythm Heart sounds: S1 normal heart sound present and S2 normal heart sound present GI: Inspection: normal to inspection and incision (cdi)
[2024-07-26 08:00] VITALS: BP 130/87; PULSE 88; RESP 16; TEMP 36.7; O2SAT 98
[2024-07-26] MEDS: MULTIVIT/MIN/PREN/FOL AC/IRON TABLET 1 TAB PO (09:08)
[2024-07-26] MEDS: SIMETHICONE 80 MG TAB.CHEW PO (09:08)
[2024-07-26] MEDS: DOCUSATE SODIUM 100 MG CAPSULE PO (09:08)
[2024-07-29 11:18] VITALS: BP 134/80; PULSE 60; RESP 18; TEMP 36.7; O2SAT 100
== END 2024-07-26 13:02 | disposition home or self-care (01) | DRG 788 ==
LOC: ANHLDR 10:13 → ANHOB2 15:27
PROVIDERS: Admitting Provider Obstetrics & Gynecology; PCP Physician Assistant Medical; Visit Provider Obstetrics & Gynecology
PROC: 10D00Z1 Extraction of Products of Conception, Low, Open Approach (ICD-10-PCS; CPT 59514; principal; 2024-07-23 12:00)
DX: O34.211 Maternal care for low transverse scar from previous cesarean delivery (principal); Z37.0 Single live birth; Z3A.40 40 weeks gestation of pregnancy
CPT/HCPCS: 36415; 85025; 85027; 85055; 86593; 86703; 86850; 86900; 86901; A9270; G0432; J1200; J1885; J2274; J2405; J2590; J7120